=== PATIENT | male | born 1965 | race Caucasian/White ===

== ENCOUNTER 2016-08-15 14:22 | Observation (INO) | payer BC ==
[~2016-08-15] VITALS: Ht 193 cm; Wt 108.9 kg
[2016-08-15 16:18] LABS: HEMOGLOBIN 16.7 gm/dl (14.0-17.5); RED BLOOD COUNT 5.37 M/UL (4.20-5.50); WHITE BLOOD COUNT 9.4 K/UL (4.5-11.0)
[2016-08-15 17:12] LABS: BUN/CREATININE RATIO 27 (0-10)
[2016-08-15] MEDS ORDERED: SPRYCEL100 MG PO (21:40)
[2016-08-15] MEDS ORDERED: CELEBREX 200MG200 MG PO (21:40)
[2016-08-15] MEDS ORDERED: CYMBALTA 30 MG30 MG PO (21:41)
== END 2016-08-16 12:00 | disposition home or self-care (01) ==
LOC: ER1 14:22 → ZEROF 20:40 → M/S 20:40
PROVIDERS: Emergency Medicine; ADMIT Internal Medicine
DX: R55 Syncope and collapse (principal); S02.2XXA Fracture of nasal bones, initial encounter for closed fracture; C92.10 Chronic myeloid leukemia, BCR/ABL-positive, not having achieved remission; Z90.89 Acquired absence of other organs; Z79.899 Other long term (current) drug therapy; Z80.42 Family history of malignant neoplasm of prostate; X58.XXXA Exposure to other specified factors, initial encounter
CPT/HCPCS: 12011; 36415; 70450; 70486; 71010; 72125; 80053; 82550; 82553; 83874; 84484; 85025; 85379; 90715; 93005; 96365; 96375; 99285; G0378; J0690; J2270; J7050; Q9963